=== PATIENT | female | born 1935 | race Caucasian/White ===

== ENCOUNTER 2017-01-19 15:13 | Observation (INO) | payer OTHER, MEDICARE ==
--- NOTE | 2017-01-19 15:33 | CPEKG ---
Heart Rate: 80 RR Interval: 750 P-R Interval: 188 QRSD Interval: 90 QT Interval: 404 QTC Interval: 466 P Boyd: 50 QRS Boyd: 43 T Wave Boyd: 43 EKG Severity - ABNORMAL ECG - EKG Impression: SINUS RHYTHM EKG Impression: INFERIOR INFARCT, OLD EKG Impression: ANTEROLATERAL INFARCT, OLD Electronically Signed By: Rob Green 19-Jan-2017 17:06:33
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
[2017-01-19] MEDS ORDERED: ASPIRIN 81 MG CHEWABLE TAB PO ONE (15:58)
[2017-01-19 16:15] LABS: % IMMATURE GRANULYOCYTES 0.3 % (0.0-1.1); ABSOLUTE IMMATURE GRANULOCYTES 0.02 10^3/uL (0.00-0.10); ADD DIFF? NO; ADD MORPH? NO; ADD SCAN? NO; ATYPICAL LYMPHOCYTE FLAG 0 (0-99); FRAGMENT RBC FLAG 0 (0-99); HEMOGLOBIN 11.7 g/dL (12.6-16.3); LEFT SHIFT FLG 0 (0-99); LIPEMIA HEMOLYSIS FLAG 80 (0-99); MEAN CELL HEMOGLOBIN 30.5 pg (27.9-34.1); MEAN CELL HEMOGLOBIN CONCENTR. 33.4 g/dL (32.4-36.7); MEAN CELL VOLUME 91.4 fL (81.5-99.8); MEAN PLATELET VOLUME 9.8 fL (8.7-11.7); PLATELET CLUMPS FLAG 0 (0-99); PLATELET COUNT 218 10^3/uL (150-400); RED BLOOD CELL COUNT 3.83 10^6/uL (4.18-5.33); RED CELL DISTRIBUTION WIDTH 13.2 % (11.5-15.2)
[2017-01-19 16:16] LABS: ANION GAP 13 mEq/L (8-16); CALCIUM 9.1 mg/dL (8.5-10.4); CARBON DIOXIDE 23 mEq/l (22-31); CHLORIDE 103 mEq/L (97-110); CREATININE 0.6 mg/dL (0.6-1.0); GLOMERULAR FILTRATION RATE > 60; GLUCOSE 110 mg/dL (70-100); POTASSIUM 3.5 mEq/L (3.5-5.2); SODIUM 139 mEq/L (134-144)
[2017-01-19 16:28] LABS: TROPONIN I < 0.012 ng/mL (0.000-0.034)
[2017-01-19] MEDS ORDERED: ALPRAZolam 0.5 MG TAB PO PRN (18:08)
[2017-01-19] MEDS ORDERED: NITROGLYCERIN 0.4 MG BTL SL PRN (18:08)
[2017-01-19] MEDS ORDERED: ONDANSETRON DISINTEGRATING 4 MG TAB PO PRN (18:10)
[2017-01-19] MEDS ORDERED: ONDANSETRON 4 MG/2 ML VIAL IVP PRN (18:10)
[2017-01-19] MEDS ORDERED: ALBUTEROL 3 ML DEYVIAL IH PRN (18:10)
[2017-01-19] MEDS ORDERED: ACETAMINOPHEN 325 MG TAB PO PRN (18:10)
[2017-01-19] MEDS ORDERED: IOPAMIDOL (ISOVUE 370) 100 ML BTL IV ONE (19:04)
[2017-01-19] MEDS ORDERED: OXYCODONE/APAP 5/325 TAB PO ONE (19:06)
[2017-01-19] MEDS ORDERED: hydrALAZINE 10 MG TAB PO PRN (19:10)
[2017-01-19] MEDS: oxyCODONE IR 5 MG TAB PO SCH (19:36)
[2017-01-19] MEDS: ACET/CAFFEINE/BUTA FIORICET 1 EACH TAB PO PRN (20:00)
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
[2017-01-19] MEDS ORDERED: ZOLPIDEM TARTRATE 5 MG TAB PO SCH (21:00)
[2017-01-19] MEDS: DICLOFENAC SODIUM 1% 100 GM GEL TP SCH (21:21)
[2017-01-19] MEDS: GABAPENTIN 300 MG CAP PO SCH (21:22)
[2017-01-19] MEDS: DULoxetine 60 MG CAP PO SCH (21:22)
[2017-01-19] MEDS: TICAGRELOR 90 MG TAB PO SCH (21:23)
[2017-01-19] MEDS ORDERED: METOPROLOL TARTRATE 5 MG/5 ML INJ IVP ONE (22:41)
[2017-01-19] MEDS ORDERED: METOPROLOL TARTRATE 25 MG TAB PO ONE (22:48)
[2017-01-20] MEDS ORDERED: ALPRAZolam 0.25 MG TAB PO PRN (01:30)
[2017-01-20] MEDS: ACET/CAFFEINE/BUTA FIORICET 1 EACH TAB PO PRN ×2 (03:26→11:18)
[2017-01-20] MEDS: oxyCODONE IR 5 MG TAB PO SCH (05:10)
[2017-01-20] MEDS: DICLOFENAC SODIUM 1% 100 GM GEL TP SCH (05:33)
[2017-01-20 05:38] LABS: CHOLESTEROL 194 mg/dL (140-220); CHOLESTEROL/HDL RATIO 3.03 RATIO (1.00-4.44); HIGH DENSITY LIPOPROTEIN 64 mg/dL (40-85); LDL/HDL RATIO 1.81 RATIO (1.00-3.22); LOW DENSITY LIPOPROTEIN 116 mg/dL (80-100); NON-HIGH DENSITY LIPOPROTEIN 130 mg/dL (90-129); TRIGLYCERIDE 70 mg/dL (35-135); VERY LOW DENSITY LIPOPROTEINS 14 mg/dL (8-25)
[2017-01-20 05:50] LABS: TROPONIN I < 0.012 ng/mL (0.000-0.034)
[2017-01-20 07:18] VITALS: RESP 18
[2017-01-20] MEDS ORDERED: levETIRAcetam 500 MG TAB PO SCH (09:00)
[2017-01-20] MEDS ORDERED: ISOSORBIDE MONONITRATE 30 MG TAB.SR PO SCH (09:00)
[2017-01-20] MEDS ORDERED: TEARS/DEXTRAN 70/HYPROMELLOSE 15 ML OPHT.BTL OP SCH (09:00)
[2017-01-20] MEDS ORDERED: AMLODIPINE BESYLATE 5/BENAZEPRIL 20MG 1 EACH CAP PO SCH (09:00)
[2017-01-20] MEDS ORDERED: ASPIRIN EC 81 MG TAB PO SCH (09:00)
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
--- NOTE | 2017-01-20 09:22 | CPEKG ---
Heart Rate: 68 RR Interval: 882 P-R Interval: 212 QRSD Interval: 98 QT Interval: 428 QTC Interval: 456 P [place]: 78 QRS [place]: 69 T Wave [place]: 49 EKG Severity - ABNORMAL ECG - EKG Impression: SINUS RHYTHM EKG Impression: PROBABLE INFERIOR INFARCT, OLD EKG Impression: ANTEROLATERAL INFARCT, OLD Electronically Signed By: Jacques Santacruz 20-Jan-2017 15:08:50
[2017-01-20] MEDS: GABAPENTIN 300 MG CAP PO SCH (09:26)
[2017-01-20] MEDS: DULoxetine 60 MG CAP PO SCH (09:27)
[2017-01-20] MEDS: TICAGRELOR 90 MG TAB PO SCH (09:27)
[2017-01-20] MEDS ORDERED: hydrALAZINE 10 MG TAB PO PRN (10:13)
[2017-01-20] MEDS ORDERED: hydrALAZINE 25 MG TAB PO PRN (10:41)
[2017-01-20 11:36] VITALS: BP 174/70; PULSE 69; TEMP 98.2; O2SAT 93
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
--- NOTE | 2017-01-21 16:31 | ASDISCHSUM ---
Discharge Information Plan Status:Home with No Needs Medically Cleared to Leave:01/20/2017 Discharge Date:01/20/2017 12:56 PM CM D/C Disposition:Home, Routine, Self-Care ADT D/C Disposition:Home, Routine, Self-Care Projected Discharge Date:01/20/2017 12:00 AM Transportation at D/C: Discharge Delay Reason: Follow-Up Date:01/20/2017 12:00 AM Discharge Slot: Final Diagnosis: Placement Information Patient Contact Information Contact Name:PAULA Relationship:Daughter Address: Work Phone: City: [facility] Phone: State/[place] Mobile Code: Email: Financial Information Financial Class: Primary Plan Desc:MEDICARE OUTPATIENT Primary Plan Number:[id number] Secondary Plan Desc:[employer]/M[employer] SUPPLEMENT Secondary Plan Number:[id number] Assessment Information Intervention Information Intervention Type:*ROMEO-Signed Date of Service:01/20/2017 10:06 AM Patient Type:Observation Staff Member:Marysol Reardon Hours: Discipline: Severity: Comment:
== END 2017-01-20 12:56 | disposition home or self-care (01) ==
LOC: INTOOBSV 17:24 → F3E 20:06
PROVIDERS: ADMIT Hospitalist; ATTEND Internal Medicine
DX: R07.9 Chest pain, unspecified (principal); F41.9 Anxiety disorder, unspecified; I25.10 Atherosclerotic heart disease of native coronary artery without angina pectoris; E04.1 Nontoxic single thyroid nodule; I25.2 Old myocardial infarction; I10 Essential (primary) hypertension; G89.29 Other chronic pain; M79.604 Pain in right leg; M79.605 Pain in left leg; Z79.02 Long term (current) use of antithrombotics/antiplatelets; Z79.891 Long term (current) use of opiate analgesic; Z79.82 Long term (current) use of aspirin; Z86.711 Personal history of pulmonary embolism; Z95.5 Presence of coronary angioplasty implant and graft; Z95.0 Presence of cardiac pacemaker
CPT/HCPCS: 71010; 71275; 93005; 97165; G0378; G8987; G8988; G8989; J2405; Q9967